=== PATIENT | female | born 1955 | race Caucasian/White ===

== ENCOUNTER → 2021-12-05 10:49 | Outpatient (CLI) | payer MEDICARE, OTHER, SELFPAY ==
--- NOTE | ~2021-12-05 | US_ITS ---
EXAMINATION: US carotid duplex BI DATE: 12/05/2021 11:17 INDICATION: Dizziness TECHNIQUE: Grayscale, color Doppler, and pulsed Doppler images of the cervical carotid arteries were obtained. The degree of vessel stenosis is placed in one of the following categories: normal, <50%, 5 0-69%, >=70% but less than near-occlusion, near-occlusion, or total occlusion. Note that percent sten osis relative to normal distal artery lumen diameter is indirectly measured from velocity measurement s as described by Jeffery, et al. Radiology 2003; 229:340-346. Notes: Normal: Peak systolic velocity <125 centimeters/sec and no plaque <50%. Peak systolic velocity <125 ( EDV <40; ICA/CCA PSV ratio <2.0; used these factors only a tandem lesions or low cardiac output or co ntralateral disease) 50-69 %: PSV 125-230 (EDV 40-100; ratio 2-4) >= 70% but less than near occlusion: PSV greater than 230 (EDV > 100; ratio> 4.0) Near Occlusion: PSV that is variable; markedly narrowed lumen Occlusion: Absent flow on color/spectral Doppler and no lumen on medina scale. COMPARISON: None. FINDINGS: RIGHT: The right common carotid artery (CCA) peak systolic velocity (PSV) is 127 cm/s. The right internal ca rotid artery (ICA) PSV is 82 cm/s. The right ICA end-diastolic velocity (EDV) is 17 cm/s. The right I CA/CCA PSV ratio is 0.6. The external carotid artery (ECA) PSV is 97 cm/s. There is antegrade flow in the right vertebral artery. LEFT: The left CCA PSV is 123 cm/s. The left ICA PSV is 86 cm/s. The left ICA EDV is 23 cm/s. The left ICA/ CCA PSV ratio is 0.7. The ECA PSV is 82 cm/s. There is antegrade flow in the left vertebral artery. IMPRESSION: 1. Less than 50% stenosis in the right internal carotid artery by sonographic criteria. 2. Less than 50% stenosis in the left internal carotid artery by sonographic criteria. Reviewed, dictated and finalized at location B. IMPRESSION: 1. Less than 50% stenosis in the right internal carotid artery by sonographic tamia brady. 2. Less than 50% stenosis in the left internal carotid artery by sonographic yumi florian.
== END ==
PROVIDERS: PCP Internal Medicine Cardiovascular Disease; Visit Provider Internal Medicine Cardiovascular Disease
DX: R42 Dizziness and giddiness (principal); I65.23 Occlusion and stenosis of bilateral carotid arteries
CPT/HCPCS: 93880

== ENCOUNTER 2021-12-14 09:16 | Outpatient (CLI) | payer MEDICARE, OTHER, SELFPAY ==
--- NOTE | ~2021-12-14 | MM_ITS ---
EXAMINATION: MM screening norman BI w richard HISTORY: Screening TECHNIQUE: Craniocaudal and mediolateral oblique 3-D tomosynthesis images were obtained and synthetic 2-D images were generated. CAD analysis was submitted and interpreted. COMPARISON: Comparison to multiple prior studies sequentially, with oldest reviewed study dated 06/10. BREAST PARENCHYMAL COMPOSITION: Breast composition is almost entirely fatty FINDINGS: There is no evidence of suspicious mass, calcification, or architectural distortion to sugg est malignancy in either breast. There has been no suspicious interval change. IMPRESSION: 1. No mammographic evidence of malignancy. 2. Recommend routine screening mammography in one year. BI-RADS Category 1: Negative Reviewed, dictated and finalized at location A.
== END 2021-12-14 09:17 | disposition home or self-care (01) ==
PROVIDERS: PCP Internal Medicine Cardiovascular Disease; Visit Provider Family Medicine Sports Medicine
DX: Z12.31 Encounter for screening mammogram for malignant neoplasm of breast (principal)
CPT/HCPCS: 77063; 77067

== ENCOUNTER 2023-01-14 10:02 | Outpatient (CLI) | payer MEDICARE, OTHER, SELFPAY ==
--- NOTE | 2023-01-22 18:24 | WPDHOMESLEEP ---
Sleep Study - Home Unattended Date of Study: 01/14/23 Ordering Provider: Fran Juárez MD Interpreting Provider: Yady Cheek, DO Home Sleep Study Type: Watch EH Height: 1.68 m Weight: 126.552 kg Body Mass Index: 45.0 Neck Circumference (inches): 16 [place]: 5 Reason for Sleep Study Snoring, nocturnal gasping Sleep History The patient is a 67-year-old female that had a sleep study ordered by her weed burner for evaluation of sleep apnea. The patient occasionally awakens from sleep short of breath. She rarely awakens at night with heartburn, belching or cough. She frequently snores and is occasionally loud enough that others complain. She frequently has trouble sleeping when she has a cold. She occasionally wakes up gasping for air throughout the night. She occasionally has breathing problems at night observed by herself or others. She rarely sweats excessively at night. She occasionally has heart palpitations or irregular heartbeats during the night. She occasionally falls asleep during the day but never while driving. She denies sleep paralysis and cataplexy. She denies having trouble at school or work due to sleepiness. She occasionally experiences vivid dreamlike scenes upon awakening or falling asleep. She rarely feels afraid of going to sleep. She rarely has nightmares and rarely remembers her dreams. She occasionally has thoughts racing through her mind. She occasionally feels sad or depressed. She frequently has anxiety. She rarely has muscular tension. She frequently notices parts of her body jerk. She occasionally kicks during the night. She frequently has crawling and aching feelings in her legs but rarely has leg pain during the night. She denies grinding her teeth during sleep and denies awakening with morning jaw pain. She is occasionally bothered by pain during the day and occasionally awakened by pain during the night. She frequently wakes up feeling stiff in the morning. She frequently wakes up with sore or achy muscles. She frequently wakes up with pain in the neck, spine or other joints. She goes to bed at 9:30 p.m. on both weekdays and weekends. It can take her several hours to fall asleep. She wakes up 3-4 times throughout the night to urinate but is able to fall back asleep within 10 minutes. She wakes up at 7:00 a.m. on both weekdays and weekends. She typically gets 8 hours of sleep per night. She will stay in bed for 20-30 minutes after waking up in the morning. She currently lives with her . She denies consuming any caffeinated beverages within 2 hours of bedtime. She denies engaging in physical exercise before bedtime. She will watch television and occasionally read before falling asleep. She will occasionally take naps in the afternoon and they are refreshing. She consumes 1 glass of caffeinated tea per day. She denies tobacco, alcohol and recreational drug use. [facility] Family History Family History Father Hypertension Family history of hypercholesterolemia Mother Family history of arthritis Diabetes mellitus Family history of hypercholesterolemia Other Depression Family history of osteoporosis Social History Social History Smoking status: Never smoker Alcohol intake: never Lack of Transportation: No Lack of Food: Never True Current Housing: I Have Housing Concerned About Future Housing: No Difficulty Paying Gas/Electric Bills: No Difficulty Paying for Meds: No Currently Unemployed: No Education: High School Diploma/GED Difficulty w/ Childcare or Family Care: No Medications Home Medications Medication Instructions Recorded Confirmed Type atorvastatin 10 mg tablet 10 mg PO DAILY 12/12/22 12/13/22 History diltiazem HCl 240 mg 240 mg PO DAILY 12/12/22 12/13/22 History capsule,extended release 24 hr sharon
[2023-01-22 18:36] VITALS: BMI 45.0
== END 2023-01-15 12:50 | disposition home or self-care (01) ==
LOC: ANHCSM 10:03
PROVIDERS: PCP Emergency Medicine; Visit Provider Internal Medicine Cardiovascular Disease
DX: G47.33 Obstructive sleep apnea (adult) (pediatric) (principal); I48.11 Longstanding persistent atrial fibrillation; R06.00 Dyspnea, unspecified; G47.10 Hypersomnia, unspecified
CPT/HCPCS: 95800

== ENCOUNTER 2023-06-20 09:12 | Outpatient (CLI) | payer MEDICARE, OTHER, SELFPAY ==
[2023-06-20 14:20] LABS: Alanine Aminotransferase 27 U/L (6-35); Albumin Level 4.1 g/dL (3.5-5.1); Alkaline Phosphatase 106 U/L (38-126); Anion Gap 7 mmol/L (8-16); Aspartate Amino Transferase 42 U/L (14-36); Bilirubin,Total 0.7 mg/dL (0.2-1.3); Blood Urea Nitrogen 20 mg/dL (7-17); Calcium 10.3 mg/dL (8.4-10.2); Carbon Dioxide 27 mmol/L (22-30); Chloride 104 mmol/L (98-107); Cholesterol 183 mg/dL (0-200); Estimated Glomerular Filt Rate > 60; Glucose 106 mg/dL (65-110); HDL Direct 71 mg/dL; Potassium 3.8 mmol/L (3.4-5.0); Sodium 138 mmol/L (137-145); Triglycerides 125 mg/dL (<150)
[2023-06-20 14:31] LABS: LDL Cholesterol Direct 80 mg/dL
== END 2023-06-20 09:13 | disposition home or self-care (01) ==
LOC: ANHGOSHLAB 09:14
PROVIDERS: PCP Emergency Medicine; Visit Provider Emergency Medicine
DX: I10 Essential (primary) hypertension (principal); I48.0 Paroxysmal atrial fibrillation
CPT/HCPCS: 36415; 80053; 80061; 84443

== ENCOUNTER 2023-07-25 12:17 | Outpatient (CLI) | payer MEDICARE, OTHER, SELFPAY ==
[2023-08-05 16:39] VITALS: BMI 44.9
--- NOTE | 2023-08-05 16:39 | WPDSLEEPSTUD ---
Sleep Study Date of Study: 07/25/23 Ordering Provider: Ramy Mera APRN Interpreting Physician: Yady Cheek DO Sleep Study Type: CPAP Titration Height: 1.68 m Weight: 126.099 kg Body Mass Index: 44.9 Neck Circumference (inches): 16 [place]: 5 Reason for Sleep Study The patient had a WatchPAT home sleep test on 01/14/2023 that showed an overall AHI of 29.9 with desaturation down to 79%. Sleep History The patient is a 68-year-old female that had a sleep study ordered by her manager rn case for evaluation of sleep apnea.? The patient occasionally awakens from sleep short of breath.? She rarely awakens at night with heartburn, belching or cough.? She frequently snores and is occasionally loud enough that others complain.? She frequently has trouble sleeping when she has a cold.? She occasionally wakes up gasping for air throughout the night.? She occasionally has breathing problems at night observed by herself or others.? She rarely sweats excessively at night.? She occasionally has heart palpitations or irregular heartbeats during the night.? She occasionally falls asleep during the day but never while driving.? She denies sleep paralysis and cataplexy.? She denies having trouble at school or work due to sleepiness.? She occasionally experiences vivid dreamlike scenes upon awakening or falling asleep.? She rarely feels afraid of going to sleep.? She rarely has nightmares and rarely remembers her dreams.? She occasionally has thoughts racing through her mind.? She occasionally feels sad or depressed.? She frequently has anxiety.? She rarely has muscular tension.??She frequently notices parts of her body jerk.? She occasionally kicks during the night.? She frequently has crawling and aching feelings in her legs but rarely has leg pain during the night.? She denies grinding her teeth during sleep and denies awakening with morning jaw pain.? She is occasionally bothered by pain during the day and occasionally awakened by pain during the night.? She frequently wakes up feeling stiff in the morning.? She frequently wakes up with sore or achy muscles.? She frequently wakes up with pain in the neck, spine or other joints.? She goes to bed at 9:30 p.m. on both weekdays and weekends.? It can take her several hours to fall asleep.? She wakes up 3-4 times throughout the night to urinate but is able to fall back asleep within 10 minutes.? She wakes up at 7:00 a.m. on both weekdays and weekends.? She typically gets 8 hours of sleep per night.? She will stay in bed for 20-30 minutes after waking up in the morning.? She currently lives with her .? She denies consuming any caffeinated beverages within 2 hours of bedtime.? She denies engaging in physical exercise before bedtime.? She will watch television and occasionally read before falling asleep.? She will occasionally take naps in the afternoon and they are refreshing.? She consumes 1 glass of caffeinated tea per day.? She denies tobacco, alcohol and recreational drug use. [facility] Family History Family History Father Hypertension Family history of hypercholesterolemia Mother Family history of arthritis Diabetes mellitus Family history of hypercholesterolemia Other Depression Family history of osteoporosis Social History Social History Smoking status: Never smoker Alcohol intake: never Lack of Transportation: No Lack of Food: Never True Current Housing: I Have Housing Concerned About Future Housing: No Difficulty Paying Gas/Electric Bills: No Difficulty Paying for Meds: No Currently Unemployed: No Education: High School Diploma/GED Difficulty w/ Childcare or Family Care: No Medications Home Medications Medication Instructions Recorded Confirmed Type atorvastatin 10 mg tablet 10 mg PO DAILY 12/12/22 07/18/23 History diltiazem HCl 240 mg 240 mg P
== END 2023-07-26 06:45 | disposition home or self-care (01) ==
LOC: ANHCSM 12:17
PROVIDERS: PCP Emergency Medicine; Visit Provider Nurse Practitioner Family
DX: G47.33 Obstructive sleep apnea (adult) (pediatric) (principal)
CPT/HCPCS: 95811

== ENCOUNTER 2023-08-09 09:38 | Outpatient (CLI) | payer MEDICARE, OTHER, SELFPAY ==
--- NOTE | ~2023-08-09 | XR_ITS ---
Clinical Indication: Unspecified PA and lateral views of the chest: Comparison: None Findings: The lungs are clear, without evidence of focal consolidation or pleural effusion. Cardiome diastinal silhouette is within normal limits. Bones and soft tissues are unremarkable. Impression: Normal chest. Reviewed, dictated and finalized at location . Impression: Normal chest.
== END 2023-08-09 09:39 | disposition home or self-care (01) ==
PROVIDERS: PCP Emergency Medicine; Visit Provider Physician Assistant
DX: R09.02 Hypoxemia (principal)
CPT/HCPCS: 71046

== ENCOUNTER 2023-08-14 12:27 | Outpatient (CLI) | payer MEDICARE, OTHER, SELFPAY ==
--- NOTE | 2023-08-14 17:13 | WPDSIXMINUTE ---
Six Minute Walk Procedure Procedure Performed Pulmonary Stress Test (6 min walk) Six Minute Walk Six Minute Walk: This is a 6 minute walk test. The test was performed and interpreted in accordance with the 2014 ERS/ATS task force guidelines. Of note the patient walked on room air with a walking aid due to back issues. Findings: The patient's resting room air oxygen saturation measured by pulse oximetry was 93% and heart rate was 95 bpm. Patient ambulated for 213 meters and oxygen saturation remained 92 to 94%. Heart rate at the end of the study was 119 bpm. The patient did not qualify for supplemental oxygen at rest or with ambulation. There are no prior studies for comparison.
--- NOTE | 2023-08-14 17:15 | WPDPFTINT ---
PFT Procedure Performed PFT Procedure Performed Spirometry with Pre/Post Bronchodilator Plethysmography (Lung Vol) Diffusing Cap (DLCO) Flow Vol Loop PFT Interpretation This is a pulmonary function test with pre and post-bronchodilator spirometry, plethysmography and diffusing capacity. The test was performed and results interpreted in accordance with the 2019 and 2005 ATS/ERS Task Force guidelines respectively using the Global Lung Function Initiative-2012 reference equations. Patient demonstrated good effort and cooperation. Reproducibility criteria were met. The quality of the pre bronchodilator spirometry maneuver was Grade A and post bronchodilator spirometry maneuver was Grade A. Findings: Spirometry: The contour the inspiratory and expiratory flow tracing are normal. The pre bronchodilator FVC is 3.38 L, 110% predicted. The pre bronchodilator FEV1 is 2.44 L, 103% predicted. The pre bronchodilator FEV1: FVC ratio is 72%. The post bronchodilator FVC is 3.41 L, representing a 1% increase. The post bronchodilator FEV1 is 2.53 L, representing a 4% increase. The post bronchodilator FEV1: FVC ratio 74%. Plethysmography: The total lung capacity is 6.00 L, 112% predicted. The functional residual capacity is 2.36 L, 77% predicted. The residual volume is 2.30 L, 100% predicted. Diffusing capacity: The diffusing capacity unadjusted for hemoglobin and carboxyhemoglobin is 20.1, 94% predicted. The diffusing capacity adjusted for alveolar volume is 4.26, 102% predicted. Impression: The spirometry is normal without evidence of an obstructive abnormality. There is no significant improvement after inhaling a single dose of albuterol. The lung volumes are normal. The diffusing capacity is normal. There are no prior studies for comparison
== END 2023-08-14 12:28 | disposition home or self-care (01) ==
LOC: ANHPFT 12:29
PROVIDERS: PCP Emergency Medicine; Visit Provider Physician Assistant
DX: R09.02 Hypoxemia (principal)
CPT/HCPCS: 94060; 94618; 94726; 94729

== ENCOUNTER 2023-11-19 16:18 | Outpatient (CLI) | payer MEDICARE, OTHER, SELFPAY ==
--- NOTE | ~2023-11-19 | MM_ITS ---
EXAMINATION: MM screening norm[place] BI w richard HISTORY: Screening mammogram TECHNIQUE: Craniocaudal and mediolateral oblique 3-D tomosynthesis images were obtained and synthetic 2-D images were generated. CAD analysis was submitted and interpreted. COMPARISON: 12/14/2021, 12/13/2015 BREAST PARENCHYMAL COMPOSITION:Not Dense. The breasts are almost entirely fatty FINDINGS: No suspicious mass, calcification, or architectural distortion are identified in either tierra ast to suggest malignancy. There has been no suspicious interval change. IMPRESSION: No mammographic evidence of malignancy. Recommend routine screening mammography in one year. BI-RADS Category 1: Negative Reviewed, dictated and finalized at location .
== END 2023-11-19 16:19 | disposition home or self-care (01) ==
LOC: ANHIMG 16:20
PROVIDERS: PCP Emergency Medicine; Visit Provider Emergency Medicine
DX: Z12.31 Encounter for screening mammogram for malignant neoplasm of breast (principal)
CPT/HCPCS: 77063; 77067

== ENCOUNTER 2023-11-29 08:56 | Outpatient (CLI) | payer MEDICARE, OTHER, SELFPAY ==
[2023-11-29 14:46] LABS: Cholesterol 163 mg/dL (0-200); HDL Direct 68 mg/dL; Triglycerides 131 mg/dL (<150)
[2023-11-29 15:01] LABS: LDL Cholesterol Direct 64 mg/dL
== END 2023-11-29 08:57 | disposition home or self-care (01) ==
PROVIDERS: PCP Emergency Medicine; Visit Provider Emergency Medicine
DX: I10 Essential (primary) hypertension (principal); I48.0 Paroxysmal atrial fibrillation
CPT/HCPCS: 36415; 80061; 84443

== ENCOUNTER 2024-03-02 12:00 | Outpatient (CLI) | payer MEDICARE, OTHER, SELFPAY ==
--- NOTE | ~2024-03-02 | XR_ITS ---
XR chest 2V Ordering provider: Chaitanya Anderson APRN History: 68 years Female with . R07.9 - Chest pain, unspecified . Comparison: None. FINDINGS: MEDIASTINUM: The cardiac silhouette is not enlarged. LUNGS: No infiltrates, effusions or pneumothorax. OTHER: No free air under the diaphragm. Possibility of healed fracture in the left lower thorax is not excluded. Degenerative changes of the spine. IMPRESSION: No acute cardiopulmonary pathology. Reviewed, dictated and finalized at location A. ENT NAVIGATOR
== END 2024-03-02 12:01 | disposition home or self-care (01) ==
LOC: GOSHIMG 12:02
PROVIDERS: PCP Student in an Organized Health Care Education/Training Program; Visit Provider Student in an Organized Health Care Education/Training Program
DX: R05.9 Cough, unspecified (principal); R07.9 Chest pain, unspecified
CPT/HCPCS: 71046

== ENCOUNTER 2024-04-21 09:41 | Outpatient (CLI) | payer MEDICARE, OTHER, SELFPAY ==
--- NOTE | ~2024-04-21 | DEXA_ITS ---
Bone Density Report Name: VANI PHILLIPS Age: 68 Sex: Female Ethnicity: White Date of : 1955 Indication: postmenopausal; screening for osteoporosis; parental hip fracture; prior fracture; Referring Provider: MEJIA SALMON Study: Bone densitometry was performed. Exam Date: April 21, 2024 Accession number: [id number] Bone Density: Region BMD T-score Z-score Classification AP Spine(L1-L4) 1.120 0.7 2.8 Normal Femoral Neck (Left) 0.581 -2.4 -0.6 Osteopenia Total Hip (Left) 0.850 -0.8 0.8 Normal Femoral Neck (Right) 0.662 -1.7 0.2 Osteopenia Total Hip (Right) 0.860 -0.7 0.9 Normal Total Hip Mean 0.855 -0.8 0.9 Normal World Health Organization criteria for BMD impression classify patients as: Normal (T-score at or above -1.0), Osteopenia (T-score between -1.0 and -2.5), or Osteoporosis (T-score at or below -2.5). 10-year Fracture Risk(1): Major Osteoporotic Fracture 28% Hip Fracture 8.7% Reported Risk Factors: [place] (), Neck BMD=0.581, BMI=46.6, previous fracture, parental fracture Input outside FRAX(R) limits. Adjusted to:Jahkvs=657 kg (1) FRAX(R) Version 3.08. Fracture probability calculated for an untreated patient. Fracture probability may be lower if the patient has received treatment. Clinical Information Provided by Patient: Has had a low trauma fracture Parent has had a hip fracture Patient maximum height was 65 Menopause Age: 50 No regular weight bearing exercise Drinks caffeinated beverages Onset of menses at age 9 Number of children 1 Impression: The patient has low bone mass, based on the Left Femoral Neck T-score. The patient has an estimated ten-year risk of hip fracture of 8.7% and an estimated ten-year risk of major fracture of 28%, based on the WHO FRAX algorithm. The patient has risk factors, including: parental hip fracture, previous fracture. Discussion: BONE DENSITY IS LOW AT ONE OR MORE SKELETAL SITES. THE PATIENT'S BMD AND CLINICAL RISK FACTORS CONTRIBUTE TO THIS PATIENT'S HIGH RISK OF FRACTURE. This patient's lowest T-score is low at one or more skeletal sites. It meets the World Health Organization's (WHO) criteria for ?low bone mass? (T-score between -1.0 and -2.5). The patient's 10-year risk of hip fracture and 10 year risk of a major osteoporotic fracture as calculated by FRAX exceeds the threshold where pharmacological therapy is recommended by the National Osteoporosis Foundation (NOF). However, all treatment decisions require clinical judgment and consideration of individual patient factors, including patient preferences, comorbidities, previous drug use, risk factors not captured in the FRAX model (e.g., frailty, falls, vitamin D deficiency, increased bone turnover, interval significant decline in bone density) and possible under or overestimation of fracture risk by FRAX. The patient should follow a healthful lifestyle (good nutrition with adequate calcium and vitamin D, and appropriate weight-bearing exercise). Follow-Up: Consider a repeat BMD and Vertebral Fracture Assessment (VFA) exam in 2 years or sooner if medically necessary, to reassess this patient's status. Reported by: KAROL on 04/21/2024 10:14:00 AM. Reviewed, dictated and finalized at location AChristy [facility]
== END 2024-04-21 09:42 | disposition home or self-care (01) ==
LOC: ANHIMG 09:42
PROVIDERS: PCP Family Medicine; Visit Provider Emergency Medicine
DX: N95.9 Unspecified menopausal and perimenopausal disorder (principal); M85.89 Other specified disorders of bone density and structure, multiple sites; Z13.820 Encounter for screening for osteoporosis
CPT/HCPCS: 77080

== ENCOUNTER 2024-06-01 09:00 | Outpatient (CLI) | payer MEDICARE, OTHER, SELFPAY ==
--- OUTSIDE RECORDS SUMMARY | 2024-06-01 09:23 | XMS_ITS | Referral Summary ---
Author Organization [facility] [address] [facility] [address] Address [address] [place] [address] Care Team Providers Care Senior Telecommunications Specialist Name Role Phone David Jain MD Primary Care Provider [phone] Allergies Active Allergy Reactions Criticality Noted Date Comments Sulfamethoxazole-Tri methoprim Stomach upset,Headache,Fatigue Low 11/28/2021 No appetite, weakness Medications losartan (COZAAR) 100 mg tablet take 1 tablet (100MG) by oral route every day 0 3 Active triamterene-hy droCHLOROthiaz joelle (MAXZIDE,DYAZI DE) 37.5-25 mg per tablet take 1 tablet by oral route every other day 0 6 Active FLUoxetine (PROzac) 40 mg capsuleIndicat ions:depressio n Take 1 capsule (40 mg total) by mouth daily Active dilTIAZem XR (DILT-XR) 240 mg 24 hr capsule TAKE 1 CAPSULE(240 MG) BY MOUTH DAILY 90 capsule 2 4 Active Xarelto 20 mg tablet TAKE 1 TABLET(20 MG) BY MOUTH DAILY WITH DINNER 90 tablet 2 5 Active atorvastatin (LIPITOR) 10 mg tablet TAKE 1 TABLET(10 MG) BY MOUTH DAILY 90 tablet 2 5 Active Xarelto 20 mg tablet TAKE 1 TABLET(20 MG) BY MOUTH DAILY WITH DINNER 90 tablet 2 4 05/26/19 25 Discontinued atorvastatin (LIPITOR) 10 mg tablet TAKE 1 TABLET(10 MG) BY MOUTH DAILY 90 tablet 2 4 05/26/19 25 Discontinued Active Problems Problem Noted Date Diagnosed Date AGNES (obstructive sleep apnea) 06/17/2023 Morbid (severe) obesity due to excess calories 0 06/17/2023 Body mass index (BMI) 45.0-49.9, adult 4 Hypersomnia 12/11/2022 PND (paroxysmal nocturnal dyspnea) 12/11/2022 Dizziness 11/28/2021 Morbid obesity with BMI of 45.0-49.9, adult 02/21 Nonrheumatic aortic valve stenosis 03/12/2017 Body mass index 40+ - severely obese 06/12/2016 Overview (07/26/2016): Morbid obesity with BMI of 45.0-49.9, adult Chronic anticoagulation 06/12/2016 Overview (07/26/2016): Chronic anticoagulation Hyperlipidemia LDL goal <100 05/25/2014 Overview (07/27/2016): Hyperlipidemia Atrial fibrillation ([facility]/HCC) 05/25/2014 Overview (07/27/2016): Atrial fibrillation Benign essential hypertension 05/25/2014 Overview (07/27/2016): Benign essential hypertension Social History Tobacco Use Types Packs/Day Years Used Date Smoking Tobacco: Never Cigarettes Smokeless Tobacco: Never Tobacco Cessation:Counseling Given: Not Answered Alcohol Use Standard Drinks/Week Comments No 0 (1 standard drink = 0.6 oz pur e alcohol) Personal Safety Answer Date Recorded Getting School Help Needed Not on file 06/17 Comments Unknown Sex and Gender Information Value Date Recorded Sex Assigned at Not on file 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 Gender Identity Not on file Sexual Orientation Not on file Last Filed Vital Signs Vital Sign Reading Time Taken Comments Blood Pressure 110/60 12/24/2023 10:23 AM CDT Pulse 84 12/24/2023 10:23 AM CDT Temperature 36.2 C (97.1 F) 04/11/2020 10:55 AM ELECTRIC DRILL OPERATOR Respiratory Rate - - Oxygen Saturation 94% 12/24/2023 10:23 AM CDT Inhaled Oxygen Concentration - - Weight 129.3 kg (285 lb) 12/24/2023 10:23 AM CDT Height 165.1 cm (5' 5 ) 12/24/2023 10:23 AM CDT Body Mass Index 47.43 12/24/2023 10:23 AM CDT Plan of Treatment Not on file Insurance MEDICARE [facility] MEDICARE [employer] Care Teams Senior Telecommunications Specialist Relationship Specialty Start Date End Date David Jain MD [address] [facility] [place] [address] PCP - General Family Medicine 12/11/22
--- OUTSIDE RECORDS SUMMARY | 2024-06-01 09:23 | XMS_ITS | Clinical Summary ---
Author Organization [facility] [address] [facility] [address] Address [address] [place] [address] Care Team Providers Care Teacher Adult Education Name Role Phone David Jain MD Primary Care Provider [phone] Allergies Active Allergy Reactions Criticality Noted Date [...] <100 05/25/2014 Overview (07/27/2016): Hyperlipidemia Atrial fibrillation ([facility]/HCC) 05/25/2014 Overview (07/27/2016): Atrial fibrillation Benign essential hypertension 05/25/2014 Overview (07/27/2016): Benign essential hypertension Surgical History Surgery Date Site/Laterality Comments OTHER SURGICAL HISTORY : Hernia Repair, Csection, D&C, tonsillectomy CATARACT EXTRACTION 05/23/2015 - 06/20/2015 SECTION 06-20-82 HERNIA REPAIR 08/20/2010 - 09/19/2010 LASIK 02/21/2004 - 03/21/2004 Medical History Medical History Date Comments Hx Other Medical Hypertension, a fib, obesity Anxiety Arthritis Depression Hypertension Family History Medical History Relation Name Comments Depression Brother 2 Marcos Major Arthritis Father Severiano Major Hypertension Father Severiano Major Other Father Severiano Major valve replace ment, CABG and carotid surgery at 86; Pneumonia Father Severiano Dooleycarlosmarko Arthritis Mother Maile Dooleylove Depression Mother Mailedelta Dooleycarlosmarko Heart failure Mother Maile Major Hypertension Mother Maile Major Other Mother Maile Major DM, arthritis; Relation Name Status Comments Brother 1 Alive Brother 2 Marcos Major Father Severiano Major Mother Maile Major Social History Tobacco Use Types Packs/Day Years [...] on file 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 Gender Identity Not on file Sexual Orientation Not on file Obstetrics History Last Filed Vital Signs Vital Sign Reading Time Taken Comments Blood Pressure 110/60 12/24/2023 10:23 AM CDT Pulse 84 12/24/2023 10:23 AM CDT Temperature 36.2 C (97.1 F) 04/11/2020 10:55 AM BALL TRUING MACHINE OPERATOR Respiratory Rate - - Oxygen Saturation 94% 12/24/2023 10:23 AM CDT Inhaled Oxygen Concentration - - Weight 129.3 kg (285 lb) 12/24/2023 10:23 AM CDT Height 165.1 cm (5' 5 ) 12/24/2023 10:23 AM CDT Body Mass Index 47.43 12/24/2023 10:23 AM CDT Plan of Treatment Health Maintenance Due Date Last Done Comments Breast Cancer Screening-Mammogram 1955 Colon Cancer Screening-Colonoscopy 1953 Depression Screening 1953 Fall Risk Assessment 1953 Hepatitis C Screening 1953 Osteoporosis Screening-Bone Density Scan 1953 DTaP/Tdap/Td Vaccine (1 - Tdap) 1964 Hepatitis B Screening 07/08/1971 Zoster Vaccine (2 of 3) 07/13/2014 05/18/2014 Pneumococcal vaccine 65+ (1 of 1 - PCV) 2018 Well Visit 65+ 2018 Influenza Vaccine Completed 02/24/2024, , 02/11/2017, Additional history exists Insurance MEDICARE [place] [facility] [place] MEDICARE [facility] [place] [id number] Care Teams Teacher Adult Education Relationship Specialty Start Date End Date David Jain MD [address] [place] [address] PCP - General Family Medicine 12/11/22
--- OUTSIDE RECORDS SUMMARY | 2024-06-01 09:23 | XMS_ITS | Patient Health Record ---
Author Organization [employer] Address [address] [facility] [address] [place] [address] Care Team Providers Care Sulfur Burner Name Role Phone Juan Pablo Ross MD Primary Care Provider Unavailab ermias Ancelmo Yanez Unavailable [phone] Allergies No Known Allergies Reason For Referral No Information Medications Medication SIG (Take, Route, Frequency, Duration) Notes Start Date End Date Status dilTIAZem HCl Active Losartan Potassium A ctive Triamterene-HCTZ Act tariq Atorvastatin Calcium Active OTC/Vitamins Areds 2, Vit D3, OptiZinc Active Xarelto Active Social History Tobacco Use: Social History Observation Description Date Details (start date - stop date) Never Smoker NA - NA Tobacco Use/Smoking Question Answer Notes Are you a nonsmoker Problems Problem Type SNOMED Code ICD Code Onset Dates Problem Status W/U Status Risk Notes Problem 498004436 Diverticulosis of large intestine without perforation or abscess without bleeding (K57.30) Active confirmed Problem 155128997 Colon cancer screening (Z12.11) Active confirmed She had a normal colonoscopy in 2006. Her bowel movements have been normal and she denies having any blood in the stool. Problem 19987835 A-fib (I48.91) Active confirmed She was diagnosed with A-fib about 7 years ago. She is on Xarelto, diltiazem, losartan, and triamterene hydrochlorot hiazide. Problem [id number] High risk medication use (Z79.899) Active confirmed Plan Of Treatment Pending Test Test Name Order Date Colonoscopy 12/28/2020 Insurance Providers Payer Name Payer Address Payer Phone Subscriber Number Group Number Insured Name Patient Relationship to Insured Coverage Start Date Coverage End Date Medicare E2 [address] [address] [place] [address] [id number] Bhavya Taylor Self - patient is the insured [facility] [employer] [facility] [place] [address] [phone] [id number] Bhavya Taylor Self - patient is the insured Medical (General) History Medical History History ICD Code Diverticulosis Hemorrhoids Atrial Fibrillation Hypertension Depression Diabetes Surgical History Surgery Date(Month/Year) Colonoscopy (Dr Tracy) 07/2006 Umbilical Hernia Cataract Surgery C Section Tonsillectomy Hospitalization History Reason Date(Month/Year) Atrial Fibrillation 2015
[2024-06-01 13:00] LABS: Hematocrit 43.9 % (37.0-47.0); Hemoglobin 13.9 g/dL (12.0-15.0); Mean Corpuscular HGB Conc 31.7 g/dl (32-36); Mean Corpuscular Hemoglobin 29.8 pg (26-34); Mean Platelet Volume 9.3 fl (7.4-10.4); Platelet Count Result 347 k/mm3 (150-375); Red Blood Count 4.67 M/mm3 (4.2-5.4); Red Cell Distribution Width 14.7 % (11.5-14.5); White Blood Count 6.9 K/mm3 (4.5-10.0)
[2024-06-01 14:30] LABS: Hemoglobin A1C 6.4 % (<5.7)
[2024-06-01 15:34] LABS: Alanine Aminotransferase 27 U/L (6-35); Alkaline Phosphatase 111 U/L (38-126); Anion Gap 12 mmol/L (4-12); Aspartate Amino Transferase 34 U/L (14-36); Bilirubin,Total 0.7 mg/dL (0.2-1.3); Blood Urea Nitrogen 18 mg/dL (7-17); Calcium 10.3 mg/dL (8.4-10.2); Carbon Dioxide 26 mmol/L (22-30); Chloride 102 mmol/L (98-107); Cholesterol 169 mg/dL (0-200); Estimated Glomerular Filt Rate > 60; Glucose 94 mg/dL (65-110); HDL Direct 70 mg/dL; Sodium 140 mmol/L (137-145); Triglycerides 137 mg/dL (<150)
[2024-06-01 15:45] LABS: LDL Cholesterol Direct 65 mg/dL
[2024-06-01 17:31] LABS: Vitamin D 25 Hydroxy 21.5 ng/mL
== END 2024-06-01 09:01 | disposition home or self-care (01) ==
LOC: ANHGOSHLAB 09:01
PROVIDERS: Family Medicine; PCP Family Medicine; Visit Provider Family Medicine
DX: R73.09 Other abnormal glucose (principal); I10 Essential (primary) hypertension; E66.9 Obesity, unspecified; M85.80 Other specified disorders of bone density and structure, unspecified site; Z78.0 Asymptomatic menopausal state
CPT/HCPCS: 36415; 80053; 80061; 82306; 83036; 84443; 85027

== ENCOUNTER 2024-11-03 08:51 | Outpatient (CLI) | payer MEDICARE, OTHER, SELFPAY ==
--- OUTSIDE RECORDS SUMMARY | 2024-11-03 09:05 | XMS_ITS | Referral Summary ---
Author Organization [facility] [address] [facility] [address] Address [address] [place] [address] Care Team Providers Care Physician Assistant Certified Name Role Phone LatoyaangusAdwoa tovar Primary Care Provider [phone] Allergies Active Allergy Reactions Criticality Noted Date Comments Sulfamethoxazole-Tri methoprim Stomach upset,Headache,Fatigue Low 11/28/2021 No appetite, weakness Medications losartan (COZAAR) 100 mg tablet take 1 tablet (100MG) by oral route every day 0 3 Active triamterene-hyd roCHLOROthiazid e (MAXZIDE,DYAZID E) 37.5-25 mg per tablet take 1 tablet by oral route every other day 0 6 Active Additional Information Patient taking differently: 1 tablet/capsule oral Daily, Reported on 07/23/2024 FLUoxetine (PROzac) 40 mg capsuleIndicati ons:depression Take 1 capsule (40 mg total) by mouth daily Active Xarelto 20 mg tablet TAKE 1 TABLET(20 MG) BY MOUTH DAILY WITH DINNER 90 tablet 2 5 Active atorvastatin (LIPITOR) 10 mg tablet TAKE 1 TABLET(10 MG) BY MOUTH DAILY 90 tablet 2 5 Active DILT-XR 240 mg 24 hr capsule TAKE 1 CAPSULE(240 MG) BY MOUTH DAILY 90 capsule 2 5 Active Active Problems Problem Noted Date Diagnosed Date AGNES (obstructive sleep apnea) 06/17/2023 Morbid (severe) obesity due to excess calories 0 06/17/2023 Body mass index (BMI) 45.0-49.9, adult Hypersomnia 12/11/2022 PND (paroxysmal nocturnal dyspnea) 12/11/2022 Dizziness 11/28/2021 Morbid obesity with BMI of 45.0-49.9, adult 02/21 Nonrheumatic aortic valve stenosis 03/12/2017 Body mass index 40+ - severely obese 06/12/2016 Overview (07/26/2016): Morbid obesity with BMI of 45.0-49.9, adult Chronic anticoagulation 06/12/2016 Overview (07/26/2016): Chronic anticoagulation Hyperlipidemia LDL goal <100 05/25/2014 Overview (07/27/2016): Hyperlipidemia Atrial fibrillation 05/25/2014 Overview (07/27/2016): Atrial fibrillation Benign essential hypertension 05/25/2014 Overview (07/27/2016): Benign essential hypertension Social History Tobacco Use Types Packs/Day Years Used Date Smoking Tobacco: Never Cigarettes Smokeless Tobacco: Never Tobacco Cessation:Counseling Given: Not Answered Alcohol Use Standard Drinks/Week Comments No 0 (1 standard drink = 0.6 oz pur e alcohol) Comments Unknown Sex and Gender Information Value Date Recorded Sex Assigned at Not on file 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 Gender Identity Not on file Sexual Orientation Not on file Last Filed Vital Signs Vital Sign Reading Time Taken Comments Blood Pressure 110/72 07/23/2024 9:48 AM CDT Pulse 76 07/23/2024 9:48 AM CDT Temperature 36.2 C (97.1 F) 04/11/2020 10:55 AM ASSESSMENT DIRECTOR Respiratory Rate - - Oxygen Saturation 97% 07/23/2024 9:48 AM CDT Inhaled Oxygen Concentration - - Weight 133.4 kg (294 lb) 07/23/2024 9:48 AM CDT Height 165.1 cm (5' 5) 07/23/2024 9:48 AM CDT Body Mass Index 48.92 07/23/2024 9:48 AM CDT Plan of Treatment Not on file Insurance MEDICARE [facility] MEDICARE [facility] Care Teams Physician Assistant Certified Relationship Specialty Start Date End Date Adwoa Cortez DO [address] [place] [address] DR LOREDO [address] [place] [id number] PCP - General Family Medicine 07/23/24
--- OUTSIDE RECORDS SUMMARY | 2024-11-03 09:05 | XMS_ITS | Patient Health Record ---
Author Organization [employer] Address [address] [facility] [address] [place] [address] Care Team Providers Care Central Supply Nurse Name Role Phone Juan Pablo Ross MD Primary Care Provider Unavailab ermias Ancelmo Yanez Unavailable [phone] Allergies No Known Allergies Reason For Referral [...] Problem Status W/U Status Risk Notes Problem [id number] Diverticulosis of large intestine without perforation or abscess without bleeding (K57.30) Active confirmed Problem 804905250 Colon cancer screening (Z12.11) Active confirmed She had a normal colonoscopy in 2006. Her bowel movements have been normal and she denies having any blood in the stool. Problem 97918783 A-fib (I48.91) Active confirmed She was diagnosed with A-fib about 7 years ago. She is on Xarelto, diltiazem, losartan, and triamterene hydrochlorot hiazide. Problem [id number] High risk medication use (Z79.899) Active confirmed Plan Of Treatment Pending Test Test Name Order Date Colonoscopy 12/28/2020 Insurance Providers Payer Name Payer Address Payer Phone Subscriber Number Group Number Insured Name Patient Relationship to Insured Coverage Start Date Coverage End Date Medicare E2 [address] [address] [place] [address] [id number] Bhavya Taylor Self - patient is the insured [facility] [employer] [facility] [place] [address] [id number] Bhavya Taylor Self - patient is the insured Medical (General) History Medical History History ICD Code Diverticulosis Hemorrhoids Atrial Fibrillation Hypertension Depression Diabetes Surgical History Surgery Date(Month/Year) Colonoscopy (Dr Tracy) 07/2006 Umbilical Hernia Cataract Surgery C Section Tonsillectomy Hospitalization History Reason Date(Month/Year) Atrial Fibrillation 2015
--- OUTSIDE RECORDS SUMMARY | 2024-11-03 09:06 | XMS_ITS | Clinical Summary ---
Author Organization [facility] [address] [facility] [address] Address [address] [place] [address] Care Team Providers Care Machine Gun Mechanic Name Role Phone LatoyaangusAdwoa tovar Primary Care Provider [phone] Allergies Active Allergy Reactions Criticality Noted Date [...] Relation Name Comments Depression Brother 2 Marcos Klelove Arthritis Father Severiano Major Hypertension Father Severiano Major Other Father Severiano Major valve replace ment, CABG and carotid surgery at 86; Pneumonia Father [place] Klenmarko Arthritis Mother Maile Klenmarko Depression Mother Maile Klenmarko Heart failure Mother Maile Klenmarko Hypertension Mother Maile Klenmarko Other Mother Maile Klenmarko DM, arthritis; Relation Name Status Comments Brother 1 Alive Brother 2 Marcos Klenke Father Severiano Major Mother Maile Major Social History Tobacco Use Types Packs/Day Years Used Date Smoking Tobacco: Never Cigarettes Smokeless Tobacco: Never Tobacco Cessation:Counseling Given: Not Answered Alcohol Use Standard Drinks/Week Comments No 0 (1 standard drink = 0.6 oz pur e alcohol) Comments Unknown Sex and Gender Information Value Date Recorded Sex Assigned at Not on file 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 Gender Identity Not on file Sexual Orientation Not on file Obstetrics History Last Filed Vital Signs Vital Sign Reading Time Taken Comments Blood Pressure 110/72 07/23/2024 9:48 AM CDT Pulse 76 07/23/2024 9:48 AM CDT Temperature 36.2 C (97.1 F) 04/11/2020 10:55 AM DRY CANS BACK TENDER Respiratory Rate - - Oxygen Saturation 97% 07/23/2024 9:48 AM CDT Inhaled Oxygen Concentration - - Weight 133.4 kg (294 lb) 07/23/2024 9:48 AM CDT Height 165.1 cm (5' 5) 07/23/2024 9:48 AM CDT Body Mass Index 48.92 07/23/2024 9:48 AM CDT Plan of Treatment Health Maintenance Due Date Last Done Comments Breast Cancer Screening-Mammogram 1953 Colon Cancer Screening-Colonoscopy 1953 Depression Screening 1953 Fall Risk Assessment 1953 Hepatitis C Screening 1953 Osteoporosis Screening-Bone Density Scan 1953 DTaP/Tdap/Td Vaccine (1 - Tdap) 1964 Hepatitis B Screening 07/08/1971 Pneumococcal vaccine 65+ (1 of 1 - PCV) 07/08/2003 Zoster Vaccine (2 of 3) 07/13/2014 05/18/2014 Well Visit 65+ 2018 Influenza Vaccine Completed 02/24/2024, , 02/11/2017, Additional history exists Insurance MEDICARE [place] [employer] [employer]IC[place] [employer] [place] Care Teams Machine Gun Mechanic Relationship Specialty Start Date End Date Adwoa Cortez DO [address] [place] [address] [address] [place] [id number] PCP - General Family Medicine 07/23/24
[2024-11-03 15:01] LABS: Alanine Aminotransferase 24 U/L (6-35); Albumin Level 4.1 g/dL (3.5-5.1); Alkaline Phosphatase 76 U/L (38-126); Anion Gap 9 mmol/L (4-12); Aspartate Amino Transferase 45 U/L (14-36); Bilirubin,Total 0.5 mg/dL (0.2-1.3); Blood Urea Nitrogen 20 mg/dL (7-17); Calcium 10.5 mg/dL (8.4-10.2); Carbon Dioxide 24 mmol/L (22-30); Chloride 106 mmol/L (98-107); Cholesterol 171 mg/dL (0-200); Estimated Glomerular Filt Rate 57; Glucose 90 mg/dL (65-110); HDL Direct 65 mg/dL; Potassium 4.1 mmol/L (3.4-5.0); Sodium 139 mmol/L (137-145); Total Protein 7.6 g/dL (6.3-8.2); Triglycerides 137 mg/dL (<150)
[2024-11-03 15:02] LABS: Hematocrit 46.1 % (37.0-47.0); Hemoglobin 14.7 g/dL (12.0-15.0); Mean Corpuscular HGB Conc 31.9 g/dl (32-36); Mean Corpuscular Hemoglobin 30.4 pg (26-34); Mean Corpuscular Volume 95.2 fl (80-100); Platelet Count Result 344 k/mm3 (150-375); Red Blood Count 4.84 M/mm3 (4.2-5.4); White Blood Count 7.9 K/mm3 (4.5-10.0)
[2024-11-03 15:39] LABS: Thyroid Stimulating Hormone 2.980 uIU/mL (0.465-4.680)
[2024-11-03 15:57] LABS: Hemoglobin A1C 6.4 % (<5.7)
[2024-11-18 11:45] LABS: Total 1,25-Dihydroxy,Vitamin D 28.9
== END 2024-11-03 08:52 | disposition home or self-care (01) ==
LOC: ANHGOSHLAB 08:53
PROVIDERS: PCP Family Medicine; Visit Provider Family Medicine
DX: R73.03 Prediabetes (principal); I10 Essential (primary) hypertension; E66.9 Obesity, unspecified; E55.9 Vitamin D deficiency, unspecified; Z79.899 Other long term (current) drug therapy
CPT/HCPCS: 36415; 80053; 80061; 82652; 83036; 84443; 85027

== ENCOUNTER 2025-03-15 09:52 | Outpatient (CLI) | payer MEDICARE, OTHER, SELFPAY ==
--- OUTSIDE RECORDS SUMMARY | 2025-03-15 11:15 | XMS_ITS | Clinical Summary ---
Author Organization [facility] [address] [facility] [address] Address [address] [place] [address] Care Team Providers Care Air Tucker Name Role Phone LatoyaangusAdwoa tovar Primary Care Provider [phone] Allergies Active Allergy Reactions Criticality Noted Date Comments Sulfamethoxazole-Tri methoprim Stomach upset,Headache,Fatigue Low 11/28/2021 No appetite, weakness Medications losartan (COZAAR) 100 mg tablet take 1 tablet (100MG) by oral route every day 0 08/06/19 13 Active triamterene-hy droCHLOROthiaz joelle (MAXZIDE,DYAZI DE) 37.5-25 mg per tablet take 1 tablet by oral route every other day 0 12/06/19 16 Active Additional Information Patient taking differently: 1 tablet/capsule oral Daily, Reported on 01/28/2025 FLUoxetine (PROzac) 40 mg capsuleIndicat ions:depressio n Take 1 capsule (40 mg total) by mouth daily Active DILT-XR 240 mg 24 hr capsule TAKE 1 CAPSULE(240 MG) BY MOUTH DAILY 90 capsule 2 08/26/19 25 Active atorvastatin (LIPITOR) 10 mg tablet TAKE 1 TABLET(10 MG) BY MOUTH DAILY 90 tablet 2 02/23/20 25 Active Xarelto 20 mg tablet TAKE 1 TABLET(20 MG) BY MOUTH DAILY WITH DINNER 90 tablet 2 02/23/20 25 Active Xarelto 20 mg tablet TAKE 1 TABLET(20 MG) BY MOUTH DAILY WITH DINNER 90 tablet 2 05/26/19 25 025 Discontinued atorvastatin (LIPITOR) 10 mg tablet TAKE 1 TABLET(10 MG) BY MOUTH DAILY 90 tablet 2 05/26/19 25 025 Discontinued Active Problems Problem Noted Date Diagnosed [...] hypertension 05/25/2014 Overview (07/27/2016): Benign essential hypertension Encounters Date Type Department Care Team Description 01/28/2025 9:45 AM CDT Office Visit [facility] Cardiology [address] [place] [address] Fran Juárez MD Longstanding persistent atrial fibrillation (HCC) (Primary Dx); Benign essential hypertension; Hyperlipidemia LDL goal <100; Nonrheumatic aortic valve stenosis; Chronic anticoagulation; Morbid obesity with BMI of 45.0-49.9, adult (HCC); AGNES (obstructive sleep apnea) from Last 3 Months Surgical History Surgery Date Site/Laterality Comments OTHER SURGICAL HISTORY : Hernia Repair, Csection, D&C, tonsillectomy CATARACT EXTRACTION 05/23/2015 - 06/20/2015 SECTION 06-20-82 HERNIA REPAIR 08/20/2010 - 09/19/2010 LASIK 02/21/2004 - 03/21/2004 Medical History Medical History Date Comments Hx Other Medical Hypertension, a fib, obesity Anxiety 2018 Arthritis 1999 Depression 1994 Hypertension 2012 Sleep apnea 2023 Family History Medical History Relation Name Comments Depression Brother 2 Marcos Major Arthritis Father Severiano Major Hypertension Father Severiano Major Other Father Severiano Major valve replace ment, CABG and carotid surgery at 86; Pneumonia Father Severiano Major Arthritis Mother Maile Major Depression Mother Maile Major Diabetes Mother Maile Maojr Heart failure Mother Maile Major Hypertension Mother Maile Major Other Mother Maile Major DM, arthritis; Relation Name Status Comments Brother 1 Alive Brother 2 Marcos Major Father Severiano Major Mother Maile Major Social History Tobacco Use Types Packs/Day Years Used Date Smoking Tobacco: Never Smokeless Tobacco: Never Tobacco Cessation:Counseling Given: Not Answered Alcohol Use Standard Drinks/Week Comments No 0 (1 standard drink = 0.6 oz pur e alcohol) Comments Unknown Sex and Gender Information Value Date Recorded Sex Assigned at Not on file 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 Gender Identity Not on file Sexual Orientation Not on file Last Filed Vital Signs Vital Sign Reading Time Taken Comments Blood Pressure 110/68 01/28/2025 9:32 AM CDT Pulse 85 01/28/2025 9:32 AM CDT Temperature 36.2 C (97.1 F) 04/11/2020 10:55 AM METAL TESTER Respiratory Rate - - Oxygen Saturation 94% 01/28/2025 9:32 AM CDT Inhaled Oxygen Concentration - - Weight 131.1 kg (289 lb) 01/28/2025 9:32 AM CDT Height 165.1 cm (5' 5) 01/28/2025 9:32 AM CDT Body Mass Index 48.09 01/28/2025 9:32 AM CDT Plan of Treatment Health Maintenance Due Date Last Done Comments Breast Cancer Screening-Mammogram 1953 Colon Cancer Screening-Colonoscopy 1953 Depression Screening 1953 Fall Risk Assessment 1953 Hepatitis C Screening 1953 Osteoporosis Screening-Bone Density Scan 1953 Hepatitis B Screening 07/08/1971 DTaP/Tdap/Td Vaccine (1 - Tdap) 07/27/1995 6 Pneumococcal vaccine 65+ (1 of 1 - PCV) 07/08/2003 Zoster Vaccine (2 of 3) 07/13/2014 05/18/2014 Well Visit 65+ 2018 Influenza Vaccine (#1) 2024 4, 02/18/2023, 02/05/2020, Additional history exists Insurance MEDICARE [facility] MEDICARE [facility] [place] [address] Care Teams Air Tucker Relationship Specialty Start Date End Date Adwoa Cortez DO PCP - General Family Medicine 07/23/24
[2025-03-15 13:05] LABS: Hematocrit 43.1 % (37.0-47.0); Hemoglobin 13.8 g/dL (12.0-15.0); Mean Corpuscular HGB Conc 32.0 g/dl (32-36); Mean Corpuscular Hemoglobin 30.6 pg (26-34); Mean Corpuscular Volume 95.6 fl (80-100); Platelet Count Result 368 k/mm3 (150-375); Red Blood Count 4.51 M/mm3 (4.2-5.4); White Blood Count 7.3 K/mm3 (4.5-10.0)
[2025-03-15 13:22] LABS: Alanine Aminotransferase 23 U/L (6-35); Albumin Level 4.3 g/dL (3.5-5.1); Alkaline Phosphatase 88 U/L (38-126); Anion Gap 7 mmol/L (4-12); Aspartate Amino Transferase 35 U/L (14-36); Bilirubin,Total 0.6 mg/dL (0.2-1.3); Blood Urea Nitrogen 17 mg/dL (7-17); Calcium 10.2 mg/dL (8.4-10.2); Carbon Dioxide 27 mmol/L (22-30); Chloride 103 mmol/L (98-107); Cholesterol 175 mg/dL (0-200); Estimated Glomerular Filt Rate > 60; Glucose 96 mg/dL (65-110); HDL Direct 70 mg/dL; Potassium 4.0 mmol/L (3.4-5.0); Sodium 137 mmol/L (137-145); Total Protein 7.7 g/dL (6.3-8.2); Triglycerides 135 mg/dL (<150)
[2025-03-15 13:57] LABS: Thyroid Stimulating Hormone 3.090 uIU/mL (0.465-4.680)
[2025-03-15 14:53] LABS: Hemoglobin A1C 6.3 % (<5.7)
[2025-03-23 18:08] LABS: 1,25-Dihydroxy, Vitamin D-2 <10 pg/mL (.); 1,25-Dihydroxy, Vitamin D-3 63 pg/mL (.); Total 1,25-Dihydroxy,Vitamin D 63 pg/mL (.)
== END 2025-03-15 09:53 | disposition home or self-care (01) ==
PROVIDERS: PCP Family Medicine; Visit Provider Family Medicine
DX: I10 Essential (primary) hypertension (principal); F41.9 Anxiety disorder, unspecified; R73.03 Prediabetes; E66.9 Obesity, unspecified; E55.9 Vitamin D deficiency, unspecified; Z79.899 Other long term (current) drug therapy; Z68.42 Body mass index [BMI] 45.0-49.9, adult
CPT/HCPCS: 36415; 80053; 80061; 82652; 83036; 84443; 85027